=== PATIENT | female | born 2000 | race Caucasian/White ===

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

== ENCOUNTER 2023-01-14 17:46 | Emergency (ER) | payer OTHER ==
[2023-01-14] MEDS ORDERED: Ibuprofen 200 MG TAB ONE (18:54)
[2023-01-14] MEDS ORDERED: Cyclobenzaprine 10 MG TAB ONE (18:54)
== END 2023-01-14 19:37 | disposition home or self-care (01) ==
LOC: ERS 17:46
DX: M54.50 Low back pain, unspecified (principal)
CPT/HCPCS: 72100

== ENCOUNTER 2023-04-11 19:59 | Emergency (ER) | payer OTHER, SELFPAY ==
[2023-04-11 21:51] LABS: SARS-CoV-2 NAA Rapid Test Not Detected (NotDetected)
== END 2023-04-11 22:50 | disposition home or self-care (01) ==
LOC: ERS 19:59
DX: J02.9 Acute pharyngitis, unspecified (principal); Z20.822 Contact with and (suspected) exposure to COVID-19
CPT/HCPCS: 87081; 87430; 99283